=== PATIENT | female | born 1960 | race Two or more races ===

== ENCOUNTER → 2016-08-10 | Outpatient (CLI) | payer SELFPAY ==
[2016-04-25 15:06] VITALS: BP 138/78
[~2016-08-10] MED LIST: ACET325T9 PO; AZIT250T PO; BENZ200C39 PO; CIPR500T94 PO; DM/P295L2 PO; IBUP-1027 PO; LISI1TAB3 PO; OXYC-323 PO; OXYC1TAB7 PO; PRED20TA PO; PROAIR HFA8.5 GM INH
--- NOTE | 2016-08-10 11:34 | CARD ---
APPROVED REPORT EXAM: LIMITED Two-dimensional echocardiogram. Other Information Quality : Good INDICATION Breast Cancer 2D DIMENSIONS RVDd2.9 (2.9-3.5cm)Left Atrium(2D)3.8 (1.6-4.0cm) IVSd1.0 (0.7-1.1cm)Aortic Root(2D)2.3 (2.0-3.7cm) LVDd5.2 (3.9-5.9cm)PWd1.0 (0.7-1.1cm) LVDs3.5 (2.5-4.0cm)FS (%) 33.6 % SV81.8 mlLVEF(%)60.0 (>50%) LEFT VENTRICLE Limited ECHO to evaluate left ventricular function. The left ventricle is normal size. There is marcus l left ventricular wall thickness. The left ventricular systolic function is normal and the ejection fraction is within normal range. The Ejection Fraction is 55-60%. There is normal LV segmental wall m otion. RIGHT VENTRICLE The right ventricle is normal size. The right ventricular systolic function is normal. ATRIA The left atrium size is normal. The right atrium size is normal. GREAT VESSELS The aortic root is normal in size. PERICARDIAL EFFUSION There is no evidence of significant pericardial effusion. Critical Notification Critical Value: No <Conclusion> Limited ECHO to evaluate left ventricular function. The left ventricle is normal size. The left ventricular systolic function is normal and the ejection fraction is within normal range. The Ejection Fraction is 55-60%. There is no evidence of significant pericardial effusion.
== END | disposition home or self-care (01) ==
LOC: ECHO 08:21
PROVIDERS: ATTEND Internal Medicine Hematology & Oncology
DX: C50.411 Malignant neoplasm of upper-outer quadrant of right female breast (principal); I31.3 Pericardial effusion (noninflammatory)
CPT/HCPCS: 93308

== ENCOUNTER → 2016-11-14 | Outpatient (CLI) | payer OTHER ==
[2016-04-25 15:06] VITALS: BP 138/78
[~2016-11-14] MED LIST changes: -BENZ200C39 PO; +BENZ200C47 PO; +HYDR12.53 PO
--- NOTE | 2016-11-15 16:35 | PATHOLOGY ---
PATHOLOGY REPORT * * * * * * * * FINAL DIAGNOSIS: Right breast needle biopsies: - Dense fibrosis and sclerosis with focal hemosiderin-laden macrophages, mild chronic inflammation, and foreign body giant cell reaction. (JPM:arun; 11/15/2016) COMMENT: There is no evidence of residual invasive ductal carcinoma. (JPM:arun; 11/15/2016) REPORT ELECTRONICALLY SIGNED BY: Dash Perez M.D. DATE/TIME: 11/15/2016 16:34 * * * * * * * * GROSS PATHOLOGY: Received in formalin labeled "Lukas Loja, right breast," are three needle cores of nguyen soft tissue each measuring 1.0 cm in length and less than 0.1 cm in diameter. The specimen is submitted entirely in cassette A1. The cold ischemic time is 0 minutes and total fixation time is 11 hours and 40 minutes. (JPM; 11/14/16) INITIAL CPT CODE(S): A; 65562 Professional services performed [place] [facility] [place] [address] Technical services performed by [facility] at [address] [place] [address] [address], [place] [address]. SPECIMEN(S) RECEIVED: A.Right breast tissue CLINICAL HISTORY: Right breast cancer PATIENT: LUKAS LOJA /AGE: 812/20/1960 (Age: 55) PATIENT #: [id number] ALT CASE #: SPECIMEN COLLECTION DATE: 11/14/2016 SPECIMEN RECEIVED DATE: 11/14/2016 [facility] - [address] [place] [address] - PHONE: [phone] * * * END OF REPORT * * *
--- NOTE | 2016-11-16 09:38 | RAD ---
Ultrasound-guided right breast biopsy, 11/14/2016: History: Breast lump, possible fluid collection Preliminary scans of the breast did not demonstrate a discrete fluid collection. There was a spiculated hypoechoic process noted at the 12:00 location approximately 4 cm from the nipple. Following consultation with Dr. Craig, we decided to aspirate and/or core biopsy this process under ultrasound guidance. Under local anesthesia, aseptic conditions and sonographic guidance a 13-gauge needle was passed into this process via a lateral approach. No fluid was encountered. Three 14-gauge core samples were obtained from this process in a coaxial manner. The materials were sent to pathology for evaluation. An S shaped biopsy marker was then deposited at the biopsy site. The biopsy instrument was removed and hemostasis obtained. Two-view mammograms were then obtained to document position of the biopsy marker. Today's biopsied lesion lies in approximately the same region as the patient's original breast neoplasm. The patient tolerated the procedure well and left the department in good condition. The subsequent pathology report indicated the presence of dense fibrosis and sclerosis without evidence of residual invasive ductal carcinoma.
== END | disposition home or self-care (01) ==
LOC: US 09:25
PROVIDERS: ATTEND Surgery
DX: C50.411 Malignant neoplasm of upper-outer quadrant of right female breast (principal)
CPT/HCPCS: 76942; C1713; G0206; 88305; 77065

== ENCOUNTER → 2016-11-20 | Outpatient (CLI) | payer OTHER ==
[2016-04-25 15:06] VITALS: BP 138/78
--- NOTE | 2016-11-20 10:26 | CARD ---
APPROVED REPORT EXAM: Two-dimensional and M-mode echocardiogram with Doppler and color Doppler. Other Information Quality : Good Technically limited study due to body habitus. INDICATION Breast Cancer 2D DIMENSIONS RVDd2.4 (2.9-3.5cm)Left Atrium(2D)3.8 (1.6-4.0cm) IVSd1.0 (0.7-1.1cm)Aortic Root(2D)2.8 (2.0-3.7cm) LVDd5.7 (3.9-5.9cm)LVOT Diameter2.2 (1.8-2.4cm) PWd1.1 (0.7-1.1cm)LVDs4.1 (2.5-4.0cm) FS (%) 28.3 %SV86.8 ml LVEF(%)53.9 (>50%) Aortic Valve AoV Peak John.164.0cm/sAoV VTI34.7cm AO Peak GR.10.8mmHgLVOT Peak John.154.3cm/s AO Mean GR.7mmHgAVA (VMAX)3.66cm2 ANA (VTI)3.50cm2 Mitral Valve MV E Vdxjizwi493.3cm/sMV DECEL XGJX686gl MV A Paduzjxk267.0cm/sE/A Ratio1.3 Tricuspid Valve TR P. Grcmrtms455ie/sRAP ETRDEHXG6ryBm TR Peak Gr.65ewZbTENQ80akHt Pulmonary Vein S1 Cphohgwm07.0cm/sD2 Uzgbkhqm85.3cm/s LEFT VENTRICLE The left ventricle is normal size. There is normal left ventricular wall thickness. Left ventricle sy stolic function is normal. The Ejection Fraction is 50-55%. There is normal LV segmental wall motion. Transmitral Doppler flow pattern is Grade I-abnormal relaxation pattern. RIGHT VENTRICLE The right ventricle is normal size. The right ventricular systolic function is normal. ATRIA The left atrium size is normal. The right atrium size is normal. The interatrial septum is intact wit h no evidence for an atrial septal defect or patent foramen ovale as noted on 2-D or Doppler imaging. AORTIC VALVE The aortic valve is normal in structure and function. Doppler and Color Flow revealed no significant aortic regurgitation. There is no significant aortic valvular stenosis. MITRAL VALVE The mitral valve is normal in structure and function. There is no evidence of mitral valve prolapse. There is no mitral valve stenosis. Doppler and Color-flow revealed mild mitral regurgitation. TRICUSPID VALVE The tricuspid valve is normal in structure and function. Doppler and Color Flow revealed trace tricus pid regurgitation. The PA pressure was estimated at 33 mmHg. There is no tricuspid valve stenosis. PULMONIC VALVE Doppler and Color Flow revealed trace pulmonic valvular regurgitation. There is no pulmonic valvular stenosis. GREAT VESSELS The aortic root is normal in size. The ascending aorta is normal in size. The IVC is normal in size a nd collapses >50% with inspiration. PERICARDIAL EFFUSION There is no evidence of significant pericardial effusion. Critical Notification Critical Value: No <Conclusion> Left ventricle systolic function is normal. The Ejection Fraction is 50-55%. There is normal LV segmental wall motion. Technically difficult study
== END | disposition home or self-care (01) ==
LOC: ECHO 07:39
PROVIDERS: ATTEND Internal Medicine Hematology & Oncology
DX: I08.1 Rheumatic disorders of both mitral and tricuspid valves (principal)
CPT/HCPCS: 93306